=== PATIENT | male | born 1990 | race Two or more races ===

== ENCOUNTER 2018-04-06 20:53 | Emergency (ER) | payer MEDICAID ==
--- NOTE | 2018-04-07 01:04 | ED Physician Chart ---
ED Chief Complaint/HPI - Patient Information Date Seen:: 04/07/18 Time Seen:: 21:50 Chief Complaint:: rash History of Present Illness:: 28 yr old male with recent no trouble breathing or tongue swelling rash throughout unclear etiology no recent travel or recent meds or new creams lotions Allergies:: Allergies Allergy/AdvReac Type Severity Reaction Status Date / Time No Known Allergies Allergy Verified 04/06/18 21:42 Vitals:: Vital Signs - 8 hr 04/06/18 21:30 Temp 98.0 F HR 77 RR 19 BP 134/88 O2 Sat % 99 Historian:: EMS, Family Member ED Review of Systems - Review of Systems General/Constitutional: No fever, No chills, No weight loss, No weakness, No diaphoresis, No edema, No loss of appetite Skin: Rash Head: No headache, No light-headedness Eyes: No loss of vision, No pain, No diplopia ENT: No earache, No nasal drainage, No sore throat, No tinnitus Neck: No neck pain, No swelling, No thyromegaly, No stiffness, No mass noted Cardio Vascular: No chest pain, No palpitations, No PND, No orthopnea, No edema Pulmonary: No SOB, No cough, No sputum, No wheezing GI: No nausea, No vomiting, No diarrhea, No pain, No melena, No hematochezia, No constipation, No hematemesis G/U: No dysuria, No frequency, No hematuria Musculoskeletal: No bone or joint pain, No back pain, No muscle pain Endocrine: No polyuria, No polydipsia Psychiatric: No prior psych history, No depression, No anxiety, No suicidal ideation Hematopoietic: No bruising, No lymphadenopathy Allergic/Immuno: No urticaria, No angioedema Neurological: No syncope, No focal symptoms, No weakness, No paresthesia, No headache, No seizure, No dizziness, No confusion, No vertigo ED Past Medical History - Past Medical History Past Medical History: No significant medical hx Family Medical History - Family Member Mother History Unknown: Yes Ethnicity: ED Physical Exam - Physical Examination General/Constitutional: Awake, Well-developed, well-nourished, Alert, No distress, GCS 15, Non-toxic appearing, Ambulatory Head: Atraumatic Eyes: Lids, conjuctiva normal, PERRL, EOMI Skin: Well hydrated, No lymphadenopathy Other Skin comments:: diffuse small papular rash ENMT: External ears, nose nl, Nasal exam nl, Lips, teeth, gums nl Neck: Nontender, Full ROM w/o pain, No JVD, No nuchal rigidity, No bruit, No mass, No stridor Respiratory: Nl effort/Exclusion, Clear to Auscultation, No Wheeze/Rhonchi/Rales Cardio Vascular: RRR, No murmur, gallop, rubs, NL S1 S2 GI: No tenderness/rebounding/guarding, No organomegaly, No hernia, Normal BS's, Nondistended, No mass/bruits, No McBurney tenderness : No CVA tenderness Extremities: No tenderness or effusion, Full ROM, normal strength in all extremities, No edema, Normal digits & nails Neuro/Psych: Alert/oriented, DTR's symmetric, Normal sensory exam, Normal motor strength, Judgement/insight normal, Mood normal, Normal gait, No focal deficits Misc: Normal back, No paraspinal tenderness ED Septic Shock - . Is Septic Shock (SBP<90, OR Lactate>4 mmol\L) present?: No - <6hrs of presentation: Vital Signs: Vital Signs - 8 hr / 21:30 Temp 98.0 F HR 77 RR 19 BP 134/88 O2 Sat % 99 ED Discharge Plan - Patient Disposition Admit/Discharge/Transfer: PT DISCHARGED HOME Condition at Disposition: Stable Instructions: Rash, [id number] Additional Instructions: Follow up with your primary doctor, discharge instructions and prescribed meds. Is symptoms worsen come back to the ED.
--- NOTE | 2018-04-07 01:05 | ED Physician Chart ---
Anxiety HPI - General Chief Complaint: Skin Rash/Abscess Stated Complaint: RASH - Related Data Allergies/Adverse Reactions: Allergies Allergy/AdvReac Type Severity Reaction Status Date / Time No Known Allergies Allergy Verified 04/06/18 21:42 Family Medical History - Family Member Mother History Unknown: Yes Ethnicity: Course Vital Signs Temp 98.0 F 04/06/18 21:30 HR 77 04/06/18 21:30 RR 19 04/06/18 21:30 BP 134/88 04/06/18 21:30 O2 Sat % 99 04/06/18 21:30 Temp 98.0 F 04/06/18 21:30 HR 77 04/06/18 21:30 RR 19 04/06/18 21:30 BP 134/88 04/06/18 21:30 O2 Sat % 99 04/06/18 21:30 Disposition Instructions: Rash, [id number] Additional Instructions: Follow up with your primary doctor, discharge instructions and prescribed meds. Is symptoms worsen come back to the ED. ED Discharge Plan - Patient Disposition Instructions: Rash, [id number] Additional Instructions: Follow up with your primary doctor, discharge instructions and prescribed meds. Is symptoms worsen come back to the ED.
--- NOTE | 2018-04-07 01:06 | ED Physician Chart ---
ED Chief Complaint/HPI - Patient Information Date Seen:: 04/07/18 Chief Complaint:: rash History of Present Illness:: 28 yr old hm with diffuse maculopapular rash times one day no fever no headache or dizziness no new medicines no new creams no new travel works in a warehouse Allergies:: Allergies Allergy/AdvReac Type Severity Reaction Status Date / Time No Known Allergies Allergy Verified 04/06/18 21:42 Vitals:: Vital Signs - 8 hr 04/06/18 21:30 Temp 98.0 F HR 77 RR 19 BP 134/88 O2 Sat % 99 Historian:: Patient ED Review of Systems - Review of Systems General/Constitutional: No fever, No chills, No weight loss, No weakness, No diaphoresis, No edema, No loss of appetite Skin: Skin lesions, Rash Head: No headache, No light-headedness Eyes: No loss of vision, No pain, No diplopia ENT: No earache, No nasal drainage, No sore throat, No tinnitus Neck: No neck pain, No swelling, No thyromegaly, No stiffness, No mass noted Cardio Vascular: No chest pain, No palpitations, No PND, No orthopnea, No edema Pulmonary: No SOB, No cough, No sputum, No wheezing GI: No nausea, No vomiting, No diarrhea, No pain, No melena, No hematochezia, No constipation, No hematemesis G/U: No dysuria, No frequency, No hematuria Musculoskeletal: No bone or joint pain, No back pain, No muscle pain Endocrine: No polyuria, No polydipsia Psychiatric: No prior psych history, No depression, No anxiety, No suicidal ideation Hematopoietic: No bruising, No lymphadenopathy Allergic/Immuno: No urticaria, No angioedema Neurological: No syncope, No focal symptoms, No weakness, No paresthesia, No headache, No seizure, No dizziness, No confusion, No vertigo ED Past Medical History - Past Medical History Past Medical History: No significant medical hx Family Medical History - Family Member Mother History Unknown: Yes Ethnicity: ED Physical Exam - Physical Examination General/Constitutional: Awake, Well-developed, well-nourished, Alert, No distress, GCS 15, Non-toxic appearing, Ambulatory Head: Atraumatic Eyes: Lids, conjuctiva normal, PERRL, EOMI Skin: Well hydrated, No lymphadenopathy Other Skin comments:: rash small maculopapular rash diffuse rash ENMT: External ears, nose nl, Nasal exam nl, Lips, teeth, gums nl Neck: Nontender, Full ROM w/o pain, No JVD, No nuchal rigidity, No bruit, No mass, No stridor Respiratory: Nl effort/Exclusion, Clear to Auscultation, No Wheeze/Rhonchi/Rales Cardio Vascular: RRR, No murmur, gallop, rubs, NL S1 S2 GI: No tenderness/rebounding/guarding, No organomegaly, No hernia, Normal BS's, Nondistended, No mass/bruits, No McBurney tenderness : No CVA tenderness Extremities: No tenderness or effusion, Full ROM, normal strength in all extremities, No edema, Normal digits & nails Neuro/Psych: Alert/oriented, DTR's symmetric, Normal sensory exam, Normal motor strength, Judgement/insight normal, Mood normal, Normal gait, No focal deficits Misc: Normal back, No paraspinal tenderness ED Assessment - Assessment General Assessment: rash ED Septic Shock - . Is Septic Shock (SBP<90, OR Lactate>4 mmol\L) present?: No - <6hrs of presentation: Vital Signs: Vital Signs - 8 hr //18 21:30 Temp 98.0 F HR 77 RR 19 BP 134/88 O2 Sat % 99 ED Reassessment (Disposition) - Diagnosis Diagnosis:: rash - Aftercare/Follow up Instructions Medication Prescribed:: elimite cream bactrim ds - Patient Disposition Discharge/Transfer:: Home ED Discharge Plan - Patient Disposition Admit/Discharge/Transfer: PT DISCHARGED HOME Condition at Disposition: Stable Instructions: Rash, [id number] Additional Instructions: Follow up with your primary doctor, discharge instructions and prescribed meds. Is symptoms worsen come back to the ED.
== END 2018-04-06 23:30 | disposition home or self-care (01) ==
LOC: ER 20:53
DX: R21 Rash and other nonspecific skin eruption (principal)
CPT/HCPCS: Z7502

== ENCOUNTER 2019-03-29 06:41 | Emergency (ER) | payer MEDICAID ==
--- NOTE | 2019-03-29 07:24 | ED Physician Chart ---
ED Chief Complaint/HPI - Patient Information Date Seen:: 03/29/19 Time Seen:: 07:17 Chief Complaint:: laceration of the left foot History of Present Illness:: this is a 29 year male who accidentally cut his left foot after slipping the shower this am. he denies all other problems. Allergies:: Allergies Allergy/AdvReac Type Severity Reaction Status Date / Time No Known Allergies Allergy Verified 03/29/19 06:48 Vitals:: Vital Signs - 8 hr 03/29/19 06:45 Temp 98.2 F HR 82 RR 18 BP 131/78 O2 Sat % 98 Historian:: Patient Review:: Nurse's Note Reviewed, Old Chart Reviewed ED Review of Systems - Review of Systems General/Constitutional: No fever, No chills, No weight loss, No weakness, No diaphoresis, No edema, No loss of appetite Skin: No skin lesions, No rash, No bruising, Other (laceration of the left foot) Head: No headache, No light-headedness Eyes: No loss of vision, No pain, No diplopia ENT: No earache, No nasal drainage, No sore throat, No tinnitus Neck: No neck pain, No swelling, No thyromegaly, No stiffness, No mass noted Cardio Vascular: No chest pain, No palpitations, No PND, No orthopnea, No edema Pulmonary: No SOB, No cough, No sputum, No wheezing GI: No nausea, No vomiting, No diarrhea, No pain, No melena, No hematochezia, No constipation, No hematemesis G/U: No dysuria, No frequency, No hematuria Musculoskeletal: No bone or joint pain, No back pain, No muscle pain Endocrine: No polyuria, No polydipsia Psychiatric: No prior psych history, No depression, No anxiety, No suicidal ideation Hematopoietic: No bruising, No lymphadenopathy Allergic/Immuno: No urticaria, No angioedema Neurological: No syncope, No focal symptoms, No weakness, No paresthesia, No headache, No seizure, No dizziness, No confusion, No vertigo ED Past Medical History - Past Medical History Obtainable: Yes Past Medical History: No significant medical hx Family History: None Social History: Non Smoker, No Alcohol, No Drug Use, , Employed Surgical History: None Psychiatricy History: None Medication: Reviewed Family Medical History - Family Member Mother History Unknown: Yes Ethnicity: ED Physical Exam - Physical Examination General/Constitutional: Awake, Well-developed, well-nourished, Alert, No distress, GCS 15, Non-toxic appearing, Ambulatory Head: Atraumatic Eyes: Lids, conjuctiva normal, PERRL, EOMI Skin: Nl inspection, No rash, No skin lesions, No ecchymosis, Well hydrated, No lymphadenopathy ENMT: External ears, nose nl, Nasal exam nl, Lips, teeth, gums nl Neck: Nontender, Full ROM w/o pain, No JVD, No nuchal rigidity, No bruit, No mass, No stridor Respiratory: Nl effort/Exclusion, Clear to Auscultation, No Wheeze/Rhonchi/Rales Cardio Vascular: RRR, No murmur, gallop, rubs, NL S1 S2 GI: No tenderness/rebounding/guarding, No organomegaly, No hernia, Normal BS's, Nondistended, No mass/bruits, No McBurney tenderness : No CVA tenderness Extremities: No tenderness or effusion, Full ROM, normal strength in all extremities, No edema, Normal digits & nails (there is a small 2 cm vertical superficial laceration between the 4th and 5th toes of the left foot. there is was no bleeding noted.) Neuro/Psych: Alert/oriented, DTR's symmetric, Normal sensory exam, Normal motor strength, Judgement/insight normal, Mood normal, Normal gait, No focal deficits Misc: Normal back, No paraspinal tenderness ED Assessment - Assessment General Assessment: laceration of the left foot ED Septic Shock - . Is Septic Shock (SBP<90, OR Lactate>4 mmol\L) present?: No - <6hrs of presentation: Vital Signs: Vital Signs - 8 hr 03/29/19 06:45 Temp 98.2 F HR 82 RR 18 BP 131/78 O2 Sat % 98 ED Reassessment (Disposition) - Reassessment Reassessment:: the wound was clean, there was no bleeding and the wound was closed between the 4th and 5th toes. after it was clean with betadine it was rexamined and dressed with no need for sutures. Reassessment Condition:: Improved - Diagnosis Diagnosis:: superficial laceration of the left foot. - Aftercare/Follow up Instructions Aftercare/Follow-Up Instructions:: Counseled pt regarding lab results/diagnosis & need follow up, Refer to Discharge Instructions, Counseled pt & family regarding lab results/diagnosis & need follow up Medication Prescribed:: [id number] - Patient Disposition Discharge/Transfer:: Home Condition at Disposition:: Improved
== END 2019-03-29 07:34 | disposition home or self-care (01) ==
LOC: ER 06:41
DX: S91.312A Laceration without foreign body, left foot, initial encounter (principal); W18.40XA Slipping, tripping and stumbling without falling, unspecified, initial encounter; Y93.E1 Activity, personal bathing and showering; Y92.89 Other specified places as the place of occurrence of the external cause; Y99.8 Other external cause status
CPT/HCPCS: A4217; Z7502